=== PATIENT | female | born 1970 | race Hispanic/Latino ===

== ENCOUNTER 2021-01-18 18:21 | Emergency (ER) | payer OTHER, SELFPAY ==
[2021-01-18] MEDS ORDERED: NA CHLORIDE 0.9% 1,000 ML ONE (19:33)
[2021-01-18] MEDS ORDERED: FENTANYL CITR 100 MCG/2 ML ONE (19:33)
[2021-01-18 19:53] LABS: Absolute Lymphocytes (CBC) 1.3 K/uL (0.7-4.9); Basophils % 0.5 % (0-1.3); Hematocrit 43.8 % (36.0-45.0); Lymphocytes % 11.4 % (15.3-44.8); MPV 9.3 fL (7.6-11.3); RBC Red Blood Cell Count 4.89 M/uL (3.86-4.86)
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
[2021-01-18 22:16] VITALS: TEMP 97.4
[2021-01-18 22:23] VITALS: BP 122/84; O2SAT 100
== END 2021-01-18 21:48 | disposition home or self-care (01) ==
LOC: ER 18:21
DX: S10.93XA Contusion of unspecified part of neck, initial encounter (principal); W22.8XXA Striking against or struck by other objects, initial encounter; Z88.8 Allergy status to other drugs, medicaments and biological substances; Z91.018 Allergy to other foods
CPT/HCPCS: 85025; 80048; 36415; 86900; 86850; 86901; 70491; 96360; 99284; Q9967; J3010; J7030